=== PATIENT | male | born 1970 | race Caucasian/White ===

== ENCOUNTER 2024-01-07 18:36 | Emergency (ER) | payer MEDICAID, SELFPAY ==
[2024-01-07 18:43] VITALS: BP 170/105; PULSE 93; RESP 18; O2SAT 98; BMI 21.7
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
[2024-01-07] MEDS: ondansetron 2 mg/ML SDV 2 mL 4 MG IVP (18:51)
[2024-01-07 18:52] VITALS: O2SAT 100
[2024-01-07] MEDS: morphine 4 mg/mL SDV 1 mL IVP ×3 (18:52→21:55)
[2024-01-07] MEDS: lactated ringers 1,000 ML 999 ML IV ×2 (18:55→20:27)
--- NOTE | 2024-01-07 19:00 | ECG_ITS ---
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 Measurements Intervals [place] Rate: 78 P: 89 ID: [id number] QRS: 87 QRSD: 88 T: 67 QT: 353 QTc: 404 Interpretive Statements SINUS RHYTHM WITH SINUS ARRHYTHMIA No previous ECG available for comparison Electronically Signed On 01-08-2024 10:51:11 CASINO ACCOUNTANT by Jake Ritchie M.D. [id number]
[2024-01-07] MEDS: chlorhexidine gluconate 4% Btl 118 mL 1 APPLIC TOPICAL (19:20)
[2024-01-07 19:22] LABS: Basophils # 0.1 10^3/uL (0.0-0.1); Basophils % 0.5 %; Eosinophils # 0.1 10^3/uL (0.0-0.8); Eosinophils % 0.4 %; Hematocrit 40.3 % (37-53); Lymphocytes # 1.6 10^3/uL (0.8-4.8); Lymphocytes % 10.8 %; Mean Corpuscular HGB Conc 34.2 g/dL (30-55); Mean Corpuscular Hemoglobin 31.2 pg (27-33); Mean Platelet Volume 8.9 fL (7.4-10.4); Monocytes # 0.9 10^3/uL (0.2-0.9); Monocytes % 6.1 %; Neutrophils # 12.21 10^3/uL (1.8-7.7); Neutrophils % 81.8 %; Nucleated Red Blood Cells % 0 %; Platelet Count 364 10^3/cmm (157-399); Red Blood Count 4.43 10^6/uL (3.85-5.65); Red Cell Distribution Width 12.3 % (12.1-15.1); White Blood Count 14.93 10^3/uL (3.29-11.43)
[2024-01-07] MEDS: fentaNYL 50 mcg/mL INJ 2mL IVP ×2 (19:27→19:52)
[2024-01-07 19:31] LABS: Alanine Aminotransferase 35 U/L (0-41); Albumin Level 4.5 g/dL (3.5-5.2); Alkaline Phosphatase 58 U/L (40-130); Anion Gap 17.7 (5-19); Aspartate Amino Transferase 107 U/L (0-40); Blood Urea Nitrogen 15 mg/dL (6-20); Calcium 9.3 mg/dL (8.5-10.5); Carbon Dioxide 22 mmol/L (22-29); Chloride 98 mmol/L (98-107); Globulin 2.6 g/dL (1.3-4.6); Glomerular Filtration Rate 78.2 mL/min (90-130); Glucose 108 mg/dL (65-115); Osmolality Calculated 279 mOsm/kg (285-295); Potassium 3.7 mmol/L (3.5-5.1); Sodium 134 mmol/L (136-145); Total Bilirubin 0.5 mg/dL (0.15-1.2); Total Protein 7.1 g/dL (6.6-8.7)
[2024-01-07] MEDS: mupirocin oint 22 gm 1 APPLIC TOPICAL (19:35)
[2024-01-07 20:57] VITALS: BP 132/85; PULSE 73; RESP 16; O2SAT 99
[2024-01-07 22:07] VITALS: BP 132/85; PULSE 73; RESP 16; O2SAT 99
== END 2024-01-07 22:11 | disposition short-term general hospital (02) ==
PROVIDERS: Emergency Provider Internal Medicine
DX: T22.211A Burn of second degree of right forearm, initial encounter (principal); T24.211A Burn of second degree of right thigh, initial encounter; T22.20XA Burn of second degree of shoulder and upper limb, except wrist and hand, unspecified site, initial encounter; T23.291A Burn of second degree of multiple sites of right wrist and hand, initial encounter; T23.202A Burn of second degree of left hand, unspecified site, initial encounter; T31.22 Burns involving 20-29% of body surface with 20-29% third degree burns; X03.8XXA Other exposure to controlled fire, not in building or structure, initial encounter
CPT/HCPCS: 36415; 80053; 85025; 93005; 96361; 96374; 96375; 96376; 99285; J2270; J2405; J3010; J7120

== ENCOUNTER 2024-04-07 03:57 | Emergency (ER) | payer BC, MEDICAID, SELFPAY ==
[2024-04-07 03:59] VITALS: BP 162/97; PULSE 91; RESP 18; TEMP 36.7; O2SAT 99; BMI 20.9
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
[2024-04-07 04:34] VITALS: BP 151/80; PULSE 83; O2SAT 99
== END 2024-04-07 04:40 | disposition home or self-care (01) ==
PROVIDERS: Emergency Provider Emergency Medicine
DX: S01.112A Laceration without foreign body of left eyelid and periocular area, initial encounter (principal); S00.81XA Abrasion of other part of head, initial encounter; S00.12XA Contusion of left eyelid and periocular area, initial encounter; Y04.2XXA Assault by strike against or bumped into by another person, initial encounter
CPT/HCPCS: 12011; 99282

== ENCOUNTER 2025-10-20 14:14 | Emergency (ER) | payer BC, MEDICAID, SELFPAY ==
[2025-10-20 14:15] VITALS: BP 146/81; PULSE 105; RESP 18; TEMP 36.4; O2SAT 98; BMI 22.1
--- NOTE | 2025-10-20 14:17 | USCV_ITS ---
Robby Isidro Age: 55 Gender: M : 1970 Exam Date: 10/20/2025 14:42 Ordering Phys: Nighat Arriaza Technologist: KEIRA Exam Location: [facility] [place] Indication: RT CALF PAIN HISTORY: Lower extremity pain. PROCEDURES: Venous duplex imaging was performed in only the left lower extremity. The following venous structures were evaluated: common femoral vein, profunda vein, proximal portion of the greater saphenous vein, superficial femoral vein, and the popliteal vein. In addition, the posterior tibial and peroneal trunk were evaluated. FINDINGS: Normal 2-D Doppler and augmentation and compressibility throughout the lower extremity venous structures. Additional imaging through the proximal calf veins also reveals no thrombus. Limited evaluation of the greater saphenous vein is patent with no thrombus. CONCLUSIONS No evidence of left lower extremity DVT. Michael Singh MD (Electronically Signed) Final Date: 20 October 2025 17:30 Amended: 21 October 2025 16:37 C
--- NOTE | 2025-10-20 14:25 | W.ED.EXTPRO ---
HPI - Extremity Problem General: Chief complaint: Extremity Problem,Nontraumatic Stated complaint: LT leg swollen Time Seen by Provider: 10/20/25 14:25 Source: patient Mode of arrival: ambulatory Limitations: no limitations History of Present Illness: Patient is a 55-year-old male with no known past medical history here for complaint of pain/edema involving his left lower leg that he has noticed over the past 2 weeks or so. No injury or trauma. He was seen at the walk-in clinic and sent here for DVT rule out. Denies previous history of DVT/PE. No history of hypercoagulability. No recent surgeries. Denies any recent periods of prolonged immobilization. His pain is worse with walking. He denies chest pain or shortness of breath. No fevers MD Complaint: extremity pain and extremity swelling Onset (ago): day(s) Pain Consistency: constant Location: left and lower extremity Radiation: none Relieving factors: nothing Exacerbating factors: weight bearing and walking Associated symptoms: Reports no associated symptoms; Deny chest pain, fever(s) or rash Related Data Previous Rx's ?Medication ?Instructions ?Recorded cephalexin 500 mg capsule 500 mg PO Q6H 7 days #28 caps 10/20/25 Allergies Allergy/AdvReac Type Severity Reaction Status Date / Time Penicillins Allergy Unknown Verified 10/20/25 14:19 Review of Systems Const: Denies: fever(s), chills, body aches, fatigue or malaise Card: Denies: chest pain Resp: Denies: dyspnea Musc: Reports: extremity pain and extremity swelling; Denies: neck pain, back pain, joint pain, joint swelling, joint redness, joint warmth, joint stiffness or muscle weakness Skin/Breast: Denies: rash Neuro: Denies: numbness in extremities, weakness in extremities or sensory changes PFSH ED PFSH: Medical History Pain and swelling of left lower leg Social History Smoking and tobacco/nicotine status: unknown if used tobacco/nicotine Physical Exam Const: COMMON NORMALS: no acute distress, average body habitus, patient oriented x3, no limitations, healthy appearing, alert and well nourished GENERAL APPEARANCE: cooperative Resp: COMMON NORMALS: normal respiratory effort and clear to auscultation bilaterally AUSCULTATION: clear to auscultation bilaterally Cardio: COMMON NORMALS: regular rate and regular rhythm RATE: regular rate RHYTHM: regular rhythm Extremity: COMMON NORMALS: capillary refill normal NARRATIVE EXTREMITY EXAM: edema to L LE-distal to knee and above ankle when compared to R; no palpable cords; no popliteal pain/fullness; he does have some mild erythema anterior tapia with overlying warmth-minor scrapes/abrasions-possible cellulitis? no streaking or underlying fluctuance GENERAL: Yes normal exam except as noted LEFT LOWER EXTREMITY: Yes lower leg Neuro: COMMON NORMALS: patient oriented x3, moves all extremities, no focal motor deficits, no sensory deficits noted and gait normal SENSORIUM/ORIENTATION: Yes alert Skin: COMMON NORMALS: no rashes or lesions noted NARRATIVE SKIN EXAM: erythema anterior L LE GENERAL SKIN EXAM: no rashes or lesions noted Course Vital Signs: Vital signs: Vital Signs Temperature 97.6 F 10/20/25 14:15 Pulse Rate 105 H 10/20/25 14:15 Respiratory Rate 18 10/20/25 14:15 Blood Pressure 146/81 10/20/25 14:15 Pulse Oximetry 98 10/20/25 14:15 Oxygen Delivery Me thod Room Air 10/20/25 14:15 MDM - Extremity (Nontraumatic) Medical Decision Making Patient is a 55-year-old male here for left lower leg swelling. He was seen here for DVT rule out. US obtained here in the emergency department and preliminary read from US tech was negative for DVT. He is not having any swelling to his left upper leg. He does have some erythema to his anterior tapia with overlying warmth this cellulitis is suspected. No evidence for abscess, necrotizing fasciitis, compartment syndrome, or other emergency. Vital signs are stable. His blood work showing a normal white count. Patient will be placed on cephalexin for staph/strep coverage. Return precautions discussed. Differential Diagnosis Likely cellulitis, superficial thrombophlebitis and deep vein thrombosis of lower extremity Medical Records I reviewed the patient's medical records. Lab Data I reviewed the patient's lab results. 10/20/25 15:05 10/20/25 15:05 Laboratory Results WBC 8.25 10^3/uL (3.29-11.43) 10/20/25 15:05 RBC 4.27 10^6/uL (3.85-5.65) 10/20/25 15:05 Hgb 12.40 g/dL (11.27-16.99) 10/20/25 15:05 Hct 37.3 % (37-53) 10/20/25 15:05 MCV 87.4 fl (82-101) 10/20/25 15:05 MCH 29.0 pg (27-33) 10/20/25 15:05 MCHC 33.2 g/dL (30-55) 10/20/25 15:05 RDW 12.0 % (12.1-15.1) L 10/20/25 15:05 Plt Count 405 10^3/cmm (157-399) H 10/20/25 15:05 MPV 8.4 fL (7.4-10.4) 10/20/25 15:05 Neut % (Auto) 74.6 % 10/20/25 15:05 Lymph % (Auto) 16.2 % 10/20/25 15:05 [place] % (Auto) 7.8 % 10/20/25 15:05 Eos % (Auto) 0.5 % 10/20/25 15:05 Baso % (Auto) 0.7 % 10/20/25 15:05 Neut # (Auto) 6.15 10^3/uL (1.8-7.7) 10/20/25 15:05 Lymph # (Auto) 1.3 10^3/uL (0.8-4.8) 10/20/25 15:05 [place] # (Auto) 0.6 10^3/uL (0.2-0.9) 10/20/25 15:05 Eos # (Auto) 0.0 10^3/uL (0.0-0.8) 10/20/25 15:05 Baso # (Auto) 0.1 10^3/uL (0.0-0.1) 10/20/25 15:05 Nucleated RBC % (auto) 0 % 10/20/25 15:05 Nucleated RBCs # 0.0 /100WBC 10/20/25 15:05 PT 13.30 SECONDS (12.1-14.9) 10/20/25 15:05 INR 0.94 (0.8-1.2) 10/20/25 15:05 APTT 32.1 SECONDS (23.9-36.7) 10/20/25 15:05 Sodium 135 mmol/L (136-145) L 10/20/25 15:05 Potassium 4.0 mmol/L (3.5-5.1) 10/20/25 15:05 Chloride 96 mmol/L (98-107) L 10/20/25 15:05 Carbon Dioxide 30 mmol/L (22-29) H 10/20/25 15:05 Anion Gap 13.0 (5-19) 10/20/25 15:05 BUN 18 mg/dL (6-20) 10/20/25 15:05 Creatinine 0.9 mg/dL (0.7-1.2) 10/20/25 15:05 GFR Calculation 87.6 mL/min (90-130) L 10/20/25 15:05 Glucose 109 mg/dL (65-115) 10/20/25 15:05 Calculated Osmolality 282 mOsm/kg (285-295) L 10/20/25 15:05 Calcium 9.2 mg/dL (8.5-10.5) 10/20/25 15:05 Total Bilirubin 0.3 mg/dL (0.15-1.2) 10/20/25 15:05 AST 16 U/L (0-40) 10/20/25 15:05 ALT 11 U/L (0-41) 10/20/25 15:05 Alkaline Phosphatase 83 U/L (40-130) 10/20/25 15:05 Total Protein 7.3 g/dL (6.6-8.7) 10/20/25 15:05 Albumin 4.1 g/dL (3.5-5.2) 10/20/25 15:05 Globulin 3.2 g/dL (1.3-4.6) 10/20/25 15:05 XR interpretation done by ED provider, pending radiology final review (per katlyn-Samuel Alves-no DVT visualized) Discharge Plan Discharge Patient Disposition: Home Clinical Impression: Cellulitis of left anterior lower leg Condition: Stable Prescriptions: New cephalexin 500 mg capsule 500 mg PO Q6H 7 Days Qty: 28 0RF Discharge Orders: Discharge ED (Routine); Ordered 10/20/25 Ordered By: Nighat Arriaza Patient Instructions: Cellulitis (ED), Patient Portal & Timothy Instructions Activity Restrictions/Additional Instructions: As we discussed, ultrasound imaging of your leg did not show a DVT (blood clot). We discussed treating you for cellulitis. Please fill your antibiotics and start them immediately. You need to return to the emergency department or follow-up with primary care for worsening leg pain, swelling, redness, warmth, streaking up your leg, fevers, generally feeling worse or unwell, or any other concerns you may have. I hope you begin to feel better soon. 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
[2025-10-20 15:13] LABS: Hematocrit 37.3 % (37-53); Hemoglobin 12.40 g/dL (11.27-16.99); Mean Corpuscular HGB Conc 33.2 g/dL (30-55); Mean Corpuscular Hemoglobin 29.0 pg (27-33); Mean Corpuscular Volume 87.4 fl (82-101); Nucleated Red Blood Cells % 0 %; Platelet Count 405 10^3/cmm (157-399); Red Blood Count 4.27 10^6/uL (3.85-5.65); White Blood Count 8.25 10^3/uL (3.29-11.43)
[2025-10-20 15:26] LABS: INR 0.94 (0.8-1.2); Prothrombin Time 13.30 SECONDS (12.1-14.9)
[2025-10-20 15:27] LABS: Partial Thromboplastin Time 32.1 SECONDS (23.9-36.7)
[2025-10-20 15:33] LABS: Alanine Aminotransferase 11 U/L (0-41); Albumin Level 4.1 g/dL (3.5-5.2); Alkaline Phosphatase 83 U/L (40-130); Anion Gap 13.0 (5-19); Aspartate Amino Transferase 16 U/L (0-40); Blood Urea Nitrogen 18 mg/dL (6-20); Calcium 9.2 mg/dL (8.5-10.5); Carbon Dioxide 30 mmol/L (22-29); Chloride 96 mmol/L (98-107); Globulin 3.2 g/dL (1.3-4.6); Glucose 109 mg/dL (65-115); Osmolality Calculated 282 mOsm/kg (285-295); Potassium 4.0 mmol/L (3.5-5.1); Sodium 135 mmol/L (136-145); Total Protein 7.3 g/dL (6.6-8.7)
== END 2025-10-20 15:49 | disposition home or self-care (01) ==
PROVIDERS: Emergency Provider Physician Assistant
DX: L03.116 Cellulitis of left lower limb (principal)
CPT/HCPCS: 36415; 80053; 85025; 85610; 85730; 93971; 99284